=== PATIENT | female | born 1990 | race Caucasian/White ===

== ENCOUNTER 2017-10-28 00:05 | Emergency (ER) | payer OTHER ==
[2017-10-28 00:13] VITALS: RESP 18; TEMP 98.4
--- NOTE | 2017-10-28 00:52 | EDPHY ---
H & P Stated Complaint: c/o L lower back pain x 1 day Time Seen by Provider: 10/28/17 00:17 HPI/ROS: HPI The patient presents with left-sided back pain which she describes as a stabbing and squeezing pain which is intermittent and improved with ibuprofen. She noticed it 1st yesterday and has gotten progressively worse. She has been sick for about 2 weeks and was just started on azithromycin yesterday for presumed sinusitis. As she has ongoing cough and rhinorrhea. With coughing, the pain is worse. He had a fever yesterday as high as 102 F. She denies any dysuria or hematuria. She denies any abdominal pain she does not have any shortness of breath or leg swelling. REVIEW OF SYSTEMS Constitutional: Positive for fever Eyes: No discharge. ENT: No sore throat. Cardiovascular: No chest pain, no palpitations. Respiratory: Positive for cough, no shortness of breath. Gastrointestinal: No abdominal pain, no vomiting. Genitourinary: No hematuria. Musculoskeletal: See HPI Skin: No rashes. Neurological: No headache. PMHx: Depression, anxiety, PTSD Soc Hx: Student PHYSICAL General Appearance: Alert, no distress Eyes: Pupils equal and round no pallor or injection ENT, Mouth: Mucous membranes moist Respiratory: There are no retractions, lungs are clear though with decreased breath sounds at left base Cardiovascular: Tachycardic rate, regular rhythm Gastrointestinal: Abdomen is soft and non-tender, no masses, bowel sounds normal Neurological: A&O, moves all extremities Skin: Warm and dry, no rashes Musculoskeletal: Neck is supple non tender; there is tenderness to the left flank Extremities: symmetrical, full range of motion Psychiatric: Patient is oriented X 3, there is no agitation Source: Patient Exam Limitations: No limitations - Medical/Surgical History Hx Asthma: No Hx Chronic Respiratory Disease: No Hx Diabetes: No Hx Cardiac Disease: No Hx Renal Disease: No Hx Cirrhosis: No Hx Alcoholism: No Hx HIV/AIDS: No Hx Splenectomy or Spleen Trauma: No Other PMH: depression/anxiety, ptsd - Social History Smoking Status: Former smoker Constitutional: Initial Vital Signs Temperature (C) 36.9 C 10/28/17 00:08 Heart Rate 111 H 10/28/17 00:08 Respiratory Rate 18 10/28/17 00:08 Blood Pressure 111/70 10/28/17 00:08 O2 Sat (%) 96 10/28/17 00:08 O2 Delivery Mode Room Air Allergies/Adverse Reactions: gluten Allergy (Verified 10/28/17 00:13) Home Medications: Medication Instructions Recorded AZITHROMYCIN 10/28/17 Amoxicillin/Clavulanate Pot 875 mg PO BID #14 tab 10/28/17 [Augmentin 875 MG TAB (*)] Control 10/28/17 Methylphenidate 10/28/17 Medical Decision Making - Diagnostics Imaging Results: Chest x-ray two view shows retrocardiac infiltrate, interpreted by me, radiology interpretation pending. Imaging: I viewed and interpreted images myself Differential Diagnosis: 27-year-old female with prolonged viral sounding illness the last 2 weeks now presents with left-sided flank pain in association with fever and coughing. Started on azithromycin yesterday by primary care doctor for presumed sinusitis. On exam, slightly tachycardic, afebrile, with left-sided flank tenderness, decreased breath sounds left lung base. She was tested for the flu and was negative. Differential diagnosis includes pneumonia, myalgias, pyelonephritis. Emergency department labs were checked and did demonstrate leukocytosis. Renal function was normal. UA looks contaminated without any overt signs of infection. His chest x-ray shows retrocardiac opacity concerning for pneumonia. Because of this, patient was treated with IV fluids, Toradol, given a dose of Augmentin. I have advised her to continue azithromycin and take a course of Augmentin. She is in agreement with this plan. She felt better after the above treatment, heart rate improved, she was discharged home. - Data Points Laboratory Results: Laboratory Results 10/28/17 00:50 10/28/17 00:50 10/28/17 10/28/17 10/28/17 00:50 00:50 00:26 WBC 18.99 10^3/uL H 10^3/uL (3.80-9.50) RBC 4.07 10^6/uL L 10^6/uL (4.18-5.33) Hgb 13.3 g/dL g/dL (12.6-16.3) Hct 37.7 % L % (38.0-47.0) MCV 92.6 fL fL (81.5-99.8) MCH 32.7 pg pg (27.9-34.1) MCHC 35.3 g/dL g/dL (32.4-36.7) RDW 12.0 % % (11.5-15.2) Plt Count 294 10^3/uL 10^3/uL (150-400) MPV 10.0 fL fL (8.7-11.7) Neut % (Auto) 77.2 % H % (39.3-74.2) Lymph % (Auto) 12.8 % L % (15.0-45.0) [place] % (Auto) 8.5 % % (4.5-13.0) Eos % (Auto) 0.6 % % (0.6-7.6) Baso % (Auto) 0.4 % % (0.3-1.7) Nucleat RBC Rel Count 0.0 % % (0.0-0.2) Absolute Neuts (auto) 14.67 10^3/uL H 10^3/uL (1.70-6.50) Absolute Lymphs (auto) 2.43 10^3/uL 10^3/uL (1.00-3.00) Absolute Monos (auto) 1.62 10^3/uL H 10^3/uL (0.30-0.80) Absolute Eos (auto) 0.11 10^3/uL 10^3/uL (0.03-0.40) Absolute Basos (auto) 0.07 10^3/uL 10^3/uL (0.02-0.10) Absolute Nucleated RBC 0.00 10^3/uL 10^3/uL (0-0.01) Immature Gran % 0.5 % % (0.0-1.1) Immature Gran # 0.09 10^3/uL 10^3/uL (0.00-0.10) Sodium 142 mEq/L mEq/L (135-145) Potassium 3.9 mEq/L mEq/L (3.5-5.2) Chloride 102 mEq/L mEq/L (97-110) Carbon Dioxide 25 mEq/l mEq/l (22-31) Anion Gap 15 mEq/L mEq/L (8-16) BUN 8 mg/dL mg/dL (7-23) Creatinine 0.7 mg/dL mg/dL (0.6-1.0) Estimated GFR > 60 Glucose 108 mg/dL H mg/dL (70-100) Calcium 9.2 mg/dL mg/dL (8.5-10.4) Urine Color YELLOW Urine Appearance HAZY Urine pH 5.0 (5.0-7.5) Ur Specific [place] 1.017 (1.002-1.030) Urine Protein 1+ H (NEGATIVE) Urine Ketones 1+ H (NEGATIVE) Urine Blood 1+ H (NEGATIVE) Urine Nitrate NEGATIVE (NEGATIVE) Urine Bilirubin NEGATIVE (NEGATIVE) Urine Urobilinogen 2.0 EU H EU (0.2-1.0) Ur Leukocyte Esterase NEGATIVE (NEGATIVE) Urine RBC 1-3 /hpf /hpf (0-3) Urine WBC 3-5 /hpf H /hpf (0-3) Ur Epithelial Cells TRACE /lpf /lpf (NONE-1+) WBC Casts 1-5 /lpf /lpf (NONE SEEN) Urine Mucus TRACE /lpf /lpf (NONE-1+) Urine Glucose NEGATIVE (NEGATIVE) Medications Given: Discontinued Medications Amoxicillin/Clavulanate Potassium (Augmentin 875mg) 875 mg PO EDNOW ONE PRN Reason: Protocol Stop: 10/28/17 01:58 Last Admin: 10/28/17 02:21 Dose: 875 mg Sodium Chloride (Ns) 1,000 mls @ 0 mls/hr IV EDNOW ONE; Wide Open PRN Reason: Protocol Stop: 10/28/17 01:58 Last Admin: 10/28/17 02:20 Dose: 1,000 mls Ketorolac Tromethamine (Toradol) 15 mg IVP EDNOW ONE Stop: 10/28/17 01:58 Last Admin: 10/28/17 02:21 Dose: 15 mg Departure - Departure Disposition: Home, Routine, Self-Care Clinical Impression: Pneumonia Qualifiers: Pneumonia type: due to unspecified organism Laterality: left Lung location: lower lobe of lung Qualified Code(s): J18.1 - Lobar pneumonia, unspecified organism Leukocytosis Qualifiers: Leukocytosis type: unspecified Qualified Code(s): D72.829 - Elevated white blood cell count, unspecified Condition: Good Instructions: Bacterial Pneumonia (ED) Additional Instructions: Please continue to take the antibiotic your prescribed in addition to the 1 we are giving you today. Return to the emergency department if your worse in any way. Otherwise please follow-up with your regular doctor in 1-2 days. Referrals: LINOEL REEVES [Other] - As per Instructions Stand Alone Forms: School Excuse Prescriptions: Amoxicillin/Clavulanate Pot [Augmentin 875 MG TAB (*)] 875 mg PO BID #14 tab
[2017-10-28 00:57] LABS: PLATELET COUNT 294 10^3/uL (150-400)
[2017-10-28] MEDS ORDERED: KETOROLAC 15 MG/1 ML SDV IVP ONE (01:57)
[2017-10-28] MEDS ORDERED: NS 1,000 ML IV ONE (01:57)
[2017-10-28] MEDS ORDERED: AMOXICILLIN/CLAVULANATE POT 875/125 MG TAB PO ONE (01:57)
[2017-10-28 03:52] VITALS: BP 110/74; PULSE 99; O2SAT 97
== END 2017-10-28 03:51 | disposition home or self-care (01) ==
DX: J18.9 Pneumonia, unspecified organism (principal); D72.829 Elevated white blood cell count, unspecified; E86.9 Volume depletion, unspecified; Z87.891 Personal history of nicotine dependence
CPT/HCPCS: 96374; J1885